=== PATIENT | male | born 2000 | race Caucasian/White ===

== ENCOUNTER 2019-01-13 23:51 | Emergency (ER) | payer OTHER ==
--- NOTE | 2019-01-14 00:21 | ED ---
Psychiatric Complaint - HPI Summary HPI Summary: Patient is a 18 y/o M presenting to ED via EMS under 941 status for MHE. It is reported that the patient is a [employer] student and was at a formal tonight. Per triage, "Pts friends report pt. stated he was having thoughts of wander off and harming himself." In the room, the patient denies making any statements of intention of self-harm and denies SI/HI. He states that he had 4-5 drinks tonight, with the last being around 75 minutes ago. Patient states that he started to think about his grandfather who had a few years ago, "shed a few tears" upon thinking about him, and decided that he wanted to go into the [employer] to "communicate with the trees" as part of his "orthodoxy practice". He claims that a friend misinterpreted his statements and decided to call the police. Per triage, "Reports having depression while in high school which he took lexapro for 4 months and was taken off the med. Pt. reports feeling well and free from depression". On triage, pain is denied. Nothing is noted to aggravate/alleviate Sx. Home medications and allergies are reviewed. - History Of Current Complaint Time Seen by Provider: 01/13/19 23:58 Hx Obtained From: Patient Onset/Duration: Resolved - patient denies any SI/HI or thoughts of self-harm Severity Currently: None - pain denied Aggravating Factor(s): Nothing Alleviating Factor(s): Nothing Associated Signs And Symptoms: Positive: Negative Has Suicidal: Denies: Thoughts Has Homicidal: Denies: Thoughts - Allergies/Home Medications Allergies/Adverse Reactions: Allergies Allergy/AdvReac Type Severity Reaction Status Date / Time No Known Allergies Allergy Verified 11/05/17 12:39 Home Medications: Home Medications Latuda 01/14/19 [History] PMH/Surg Hx/FS Hx/Imm Hx Endocrine/Hematology History: Denies: Hx Diabetes Cardiovascular History: Denies: Hx Hypertension, Hx Pacemaker/ICD History: Denies: Hx Renal Disease Sensory History: Denies: Hx Hearing Aid Neurological History: Reports: Other Neuro Impairments/Disorders - SCHIZOPHRENIA Psychiatric History: Reports: Hx Schizophrenia Denies: Hx Panic Disorder Infectious Disease History: No Infectious Disease History: Denies: Traveled Outside the [place] in Last 30 Days - Family History Known Family History: Positive: Other - FMHx of anxiety disorder - Social History Occupation: Student Lives: Dormitory/Roommates Alcohol Use: Daily Review of Systems Negative: Fever - on vitals, temp is 98.1 F Psychological: Other - NEGATIVE - SI/HI, NO THOUGHTS OF SELF-HARM All Other Systems Reviewed And Are Negative: Yes Physical Exam - Summary Physical Exam Summary: VITAL SIGNS: Reviewed. GENERAL: Patient is a well-developed and nourished male who is lying comfortable in the stretcher. Patient is not in any acute respiratory distress. HEAD AND FACE: No signs of trauma. No ecchymosis, hematomas or skull depressions. No sinus tenderness. EYES: PERRLA, EOMI x 2, No injected conjunctiva, no nystagmus. EARS: Hearing grossly intact. Ear canals and tympanic membranes are within normal limits. MOUTH: Oropharynx within normal limits. NECK: Supple, trachea is midline, no adenopathy, no JVD, no carotid bruit, no c- spine tenderness, neck with full ROM CHEST: Symmetric, no tenderness at palpation LUNGS: Clear to auscultation bilaterally. No wheezing or crackles. CVS: Regular rate and rhythm, S1 and S2 present, no murmurs or gallops appreciated. ABDOMEN: Soft, non-tender. No signs of distention. No rebound no guarding, and no masses palpated. Bowel sounds are normal. EXTREMITIES: FROM in all major joints, no edema, no cyanosis or clubbing. NEURO: Alert and oriented x 3. No acute neurological deficits. Speech is normal and follows commands. SKIN: Dry and warm Triage Information Reviewed: Yes Vital Signs On Initial Exam: Initial Vitals Temp Pulse Resp BP Pulse Ox 98.1 F 91 18 126/90 98 01/13/19 23:53 01/13/19 23:53 01/13/19 23:53 01/13/19 23:53 01/13/19 23:53 Vital Signs Reviewed: Yes Diagnostics - Vital Signs Vital Signs Temp Pulse Resp BP Pulse Ox 01/13/19 23:53 98.1 F 91 18 126/90 98 - Laboratory Result Diagrams: 01/14/19 02:20 01/14/19 02:20 Lab Statement: Any lab studies that have been ordered have been reviewed, and results considered in the medical decision making process. Re-Evaluation - Re-Evaluation First Eval Re-Evaluation Time: 00:21 Comment: Patient is medically cleared for MHE. Second Eval Re-Evaluation Time: 00:24 Comment: Nurse Lani conveys that the patient has PMHx of schizophrenia and that the patient's friends reported that the patient does not take any medications for this condition. She also reports that the patient's friends claimed that the patient drinks +12 alcoholic beverages daily. Course/Dx - Course Course Of Treatment: Patient is a 18 y/o M presenting to ED via EMS under 941 status for MHE. 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 Per triage, "Pts friends report pt. stated he was having thoughts of wander off and harming himself." In the room, the patient denies making any statements of intention of self-harm and denies SI/HI. He states that he had 4-5 drinks tonight, with the last being around 75 minutes ago. Patient states that he started to think about his grandfather who had a few years ago, "shed a few tears" upon thinking about him, and decided that he wanted to go into the [employer] to "communicate with the trees" as part of his "orthodoxy practice". He claims that a friend misinterpreted his statements and decided to call the police. Physical exam is unremarkable, patient is medically cleared. Nurse Lani conveys that the patient has PMHx of schizophrenia and that the patient's friends reported that the patient does not take any medications for this condition. She also reports that the patient's friends claimed that the patient drinks +12 alcoholic beverages daily. After review of patient's case by Dr. Handy, patient will be a MH hold until psychiatrist can come in the morning to evaluate the patient. Patient will be signed out to Dr. Mccurdy at 0700 01/14/19 shift change pending evaluation by psychiatrist. - Differential Dx/Clinical Impression Provider Diagnosis: Depression - Physician Notifications Discussed Care Of Patient With: Wil Handy Time Discussed With Above Provider: 01:54 Instructed by Provider To: Other - After review of patient's case by Dr. Handy, patient will be a MH hold until psychiatrist can come in the morning to evaluate the patient. Discharge - Sign-Out/Discharge Documenting (check all that apply): Sign-Out Patient Signing out patient TO: Marcello Mccurdy - Discharge Plan Referrals: [facility] - [employer] [facility] [[employer], APPLICATION, OTHER] - - Attestation Statements Document Initiated by Scribe: Yes Documenting Scribe: MIKE MITCHELL Provider For Whom Scribe is Documenting (Include Credential): CALLY MARIE MD Scribe Attestation: I, MIKE MITCHELL, scribed for CALLY MARIE MD on 01/14/19 at 0628. Status of Scribe Document: Ready
[2019-01-14 02:31] LABS: Urine Appearance Clear; Urine Bilirubin Negative (Negative); Urine Blood Negative (Negative); Urine Color Colorless; Urine Glucose Negative (Negative); Urine Ketones Negative (Negative); Urine Nitrite Negative (Negative); Urine Protein Negative (Negative); Urine Specific Gravity 1.002 (1.010-1.030); Urine Urobilinogen Negative (Negative)
[2019-01-14 02:33] LABS: ABS Basophils 0.1 10^3/ul (0-0.2); ABS Eosinophils 0.3 10^3/ul (0-0.6); ABS Lymphocytes 2.8 10^3/ul (1.0-4.8); ABS Monocytes 0.5 10^3/ul (0-0.8); ABS Neutrophils 5.1 10^3/ul (1.5-7.7); Eosinophil % 2.9 %; Hematocrit 47 % (42-52); Hemoglobin 16.5 g/dL (14.0-18.0); Mean Corpuscular HGB Conc 35 g/dL (31-36); Mean Corpuscular Hemoglobin 32 pg (27-31); Mean Corpuscular Volume 92 fL (80-94); Mean Platelet Volume 8.9 fL (7.4-10.4); Nucleated Red Blood Cells % 0.1; Platelet Count 247 10^3/uL (150-450); Red Blood Count 5.11 10^6 /uL (4.18-5.48); Red Cell Distribution Width 13 % (10.5-15); White Blood Count 8.6 10^3/uL (3.5-10.8)
[2019-01-14 02:41] LABS: Urine Benzodiazepine Screen None Detected (None Detect); Urine Opiates Screen None Detected (None Detect)
[2019-01-14 02:45] LABS: ALT 12 U/L (7-52); AST 14 U/L (13-39); Acetaminophen < 15 mcg/mL; Albumin 4.7 g/dL (3.2-5.2); Albumin/Globulin Ratio 1.6 (1-3); Alcohol 136 mg/dL (<10); Alkaline Phosphatase 84 U/L (34-104); Anion Gap 12 mmol/L (2-11); BUN/Creatinine Ratio 15.1 (8-20); Blood Urea Nitrogen 13 mg/dL (6-24); CO2 Carbon Dioxide 24 mmol/L (22-32); Calcium 9.4 mg/dL (8.6-10.3); Chloride 104 mmol/L (101-111); EGFR African American 137.2 (>60); EGFR Non-African American 113.4 (>60); Globulin 2.9 g/dL (2-4); Glucose 88 mg/dL (70-100); Potassium 3.8 mmol/L (3.5-5.0); Salicylate < 2.50 mg/dL (<30); Sodium 140 mmol/L (135-145); Total Protein 7.6 g/dL (6.4-8.9)
[2019-01-14 03:00] LABS: TSH (Thyroid Stimulating Horm) 4.04 mcIU/mL (0.34-5.60)
--- NOTE | 2019-01-14 07:21 | PN ---
ED Flex Patient Progress Note Date of Service: 01/13/19 Subjective: This is a 18 year-old M who is pending admission to [facility] / transfer to another psychiatric facility / discharge to home / or being observed secondary to depression. Pt. examined in room 21 at 0720. He is sitting on side of bed drinking water in NAD. Offers to complaints. Objective: Vitals: Most recent vital signs documented below. General NAD, Alert and oriented x3. Laboratory: Current laboratory results documented below. Assessment: depression. Plan: Pending re-evaluation. Latuda listed in meds but pt. not currently taking. Vital Signs Temp Pulse Resp BP Pulse Ox 97.7 F 89 16 116/65 100 01/14/19 01:25 01/14/19 01:25 01/14/19 01:25 01/14/19 01:25 01/14/19 01:25 Lab Results - Entire Visit 01/14/19 01/14/19 01/14/19 02:20 02:20 00:17 WBC 8.6 RBC 5.11 Hgb 16.5 Hct 47 MCV 92 MCH 32 H MCHC 35 RDW 13 Plt Count 247 MPV 8.9 Neut % (Auto) 58.8 Lymph % (Auto) 32.0 Archuleta % (Auto) 5.6 Eos % (Auto) 2.9 Baso % (Auto) 0.7 Absolute Neuts (auto) 5.1 Absolute Lymphs (auto) 2.8 Absolute Monos (auto) 0.5 Absolute Eos (auto) 0.3 Absolute Basos (auto) 0.1 Absolute Nucleated RBC 0.0 Nucleated RBC % 0.1 Sodium 140 Potassium 3.8 Chloride 104 Carbon Dioxide 24 Anion Gap 12 H BUN 13 Creatinine 0.86 Est GFR ( Amer) 137.2 Est GFR (Non-Af Amer) 113.4 BUN/Creatinine Ratio 15.1 Glucose 88 Calcium 9.4 Total Bilirubin 0.50 AST 14 ALT 12 Alkaline Phosphatase 84 Total Protein 7.6 Albumin 4.7 Globulin 2.9 Albumin/Globulin Ratio 1.6 TSH 4.04 Urine Color Urine Appearance Urine pH Ur Specific Earl[place] Urine Protein Urine Ketones Urine Blood Urine Nitrate Urine Bilirubin Urine Urobilinogen Ur Leukocyte Esterase Urine Glucose Salicylates < 2.50 Urine Opiates Screen None detected Acetaminophen < 15 Ur Barbiturates Screen None detected Ur Phencyclidine Scrn None detected Ur Amphetamines Screen None detected U Benzodiazepines Scrn None detected Urine Cocaine Screen None detected U Cannabinoids Screen None detected Serum Alcohol 136 H 01/14/19 00:17 WBC RBC Hgb Hct MCV MCH MCHC RDW Plt Count MPV Neut % (Auto) Lymph % (Auto) Archuleta % (Auto) Eos % (Auto) Baso % (Auto) Absolute Neuts (auto) Absolute Lymphs (auto) Absolute Monos (auto) Absolute Eos (auto) Absolute Basos (auto) Absolute Nucleated RBC Nucleated RBC % Sodium Potassium Chloride Carbon Dioxide Anion Gap BUN Creatinine Est GFR ( Amer) Est GFR (Non-Af Amer) BUN/Creatinine Ratio Glucose Calcium Total Bilirubin AST ALT Alkaline Phosphatase Total Protein Albumin Globulin Albumin/Globulin Ratio TSH Urine Color Colorless Urine Appearance Clear Urine pH 6.0 Ur Specific [place] 1.002 L Urine Protein Negative Urine Ketones Negative Urine Blood Negative Urine Nitrate Negative Urine Bilirubin Negative Urine Urobilinogen Negative Ur Leukocyte Esterase Negative Urine Glucose Negative Salicylates Urine Opiates Screen Acetaminophen Ur Barbiturates Screen Ur Phencyclidine Scrn Ur Amphetamines Screen U Benzodiazepines Scrn Urine Cocaine Screen U Cannabinoids Screen Serum Alcohol
--- NOTE | 2019-01-14 10:54 | ED ---
Progress - Progress Note Progress Note: Pt signed out from Dr. Choi pending evaluation from psychiatrist. Per Joseph, mental health accounting systems analyst, pt will be discharged after evaluation by Dr. Handy, psychiatrist. - Consult/PCP Time Called: 00:20 Re-Evaluation - Re-Evaluation First Eval Re-Evaluation Time: 00:21 Comment: Patient is medically cleared for MHE. Second Eval Re-Evaluation Time: 00:24 Comment: Nurse Lani conveys that the patient has PMHx of schizophrenia and that the patient's friends reported that the patient does not take any medications for this condition. She also reports that the patient's friends claimed that the patient drinks +12 alcoholic beverages daily. Course/Dx - Diagnoses Provider Diagnoses: Substance induced mood disorder Discharge - Sign-Out/Discharge Documenting (check all that apply): Patient Departure - Discharge Patient Received Moderate/Deep Sedation with Procedure: No - Discharge Plan Condition: Stable Disposition: HOME Patient Education Materials: Mood Disorders (ED) Referrals: [facility] - [employer] [facility] [[employer], APPLICATION, OTHER] - - Billing Disposition and Condition Condition: STABLE Disposition: Home - Attestation Statements Document Initiated by Scribe: Yes Documenting Scribe: Maribel Tesfaye Provider For Whom Scribe is Documenting (Include Credential): Marcello Mccurdy MD Scribe Attestation: IMaribel, scribed for Marcello Mccurdy MD on 01/14/19 at 1505. Scribe Documentation Reviewed: Yes Provider Attestation: The documentation as recorded by the scribeMaribel accurately reflects the service I personally performed and the decisions made by me, Marcello Mccurdy MD Status of Scribe Document: Viewed
[2019-01-14 10:56] VITALS: BP 129/96
== END 2019-01-14 11:30 | disposition home or self-care (01) ==
LOC: ED 23:51
DX: F19.94 Other psychoactive substance use, unspecified with psychoactive substance-induced mood disorder (principal); F32.9 Major depressive disorder, single episode, unspecified; F20.9 Schizophrenia, unspecified
CPT/HCPCS: 36415; 80053; 80307; 80320; 80329; 81003; 84443; 85025; 99283; G0480

== ENCOUNTER 2019-02-08 00:31 | Emergency (ER) | payer OTHER ==
--- NOTE | 2019-02-08 01:05 | ED ---
Substance Abuse/Use - HPI Summary HPI Summary: This pt is a 18 y/o M brought in by EMS and the police after being found passed out in [facility]. Pt was unconscious when found by a passerby. The pt became agitated when he was loaded on a stretcher and attempted to bite one of the police officers before being placed in handcuffs en route to the ED. He denies any other substance abuse and pain. The pt is a level 5 caveat due to intoxication. - History Of Current Complaint Chief Complaint: EDSubstanceAbuse Stated Complaint: ETOH PER EMS Time Seen by Provider: 02/08/19 00:41 Hx Obtained From: EMS, Other: - Police Hx From Patient Unobtainable Due To: Other - Alcohol Intoxication Ingestion History: Type/Name Of Drug - Alcohol Severity Initially: Severe Severity Currently: Severe Character: Lethargic, Other - Aggressive when loaded on the stretcher by EMS Aggravating Factor(s): Nothing Alleviating Factor(s): Nothing Associated Signs And Symptoms: Hostile - Bite a information officer, Agitated - Bite a information officer - Allergies/Home Medications Allergies/Adverse Reactions: Allergies Allergy/AdvReac Type Severity Reaction Status Date / Time No Known Allergies Allergy Verified 11/05/17 12:39 PMH/Surg Hx/FS Hx/Imm Hx Previously Healthy: No Endocrine/Hematology History: Denies: Hx Diabetes Cardiovascular History: Denies: Hx Hypertension, Hx Pacemaker/ICD History: Denies: Hx Renal Disease Sensory History: Denies: Hx Hearing Aid Neurological History: Reports: Other Neuro Impairments/Disorders - SCHIZOPHRENIA Psychiatric History: Reports: Hx Schizophrenia Denies: Hx Eating Disorder, Hx Panic Disorder, Hx of Violent Episodes Against Others Infectious Disease History: No Infectious Disease History: Denies: Traveled Outside the [place] in Last 30 Days - Family History Known Family History: Positive: Other - FMHx of anxiety disorder - Social History Alcohol Use: Daily Hx Substance Use: No Substance Use Type: Reports: None Hx Tobacco Use: No Smoking Status (MU): Never Smoked Tobacco Review of Systems - ROS Summary Review of Systems Summary: Pt is a level 5 caveat due to alcohol intoxication. ROS unobtainable. All Other Systems Reviewed And Are Negative: No Physical Exam - Summary Physical Exam Summary: Pt is a level 5 caveat due to alcohol intoxication Appearance: Well-appearing, Well-nourished, lying in bed comfortably Skin: Warm, dry, no obvious rash Eyes: sclera anicteric, no conjunctival pallor ENT: mucous membranes moist, pharynx appears normal Neck: Supple, nontender Respiratory: Clear to auscultation, no signs of respiratory distress Cardiovascular: Normal S1, S2. No murmurs. Normal distal pulses in tibial and radial bilaterally. Abdomen: Soft, nontender, normal active bowel sounds present Musculoskeletal: Normal, Strength/ROM Intact Neurological: A&Ox3, awake and alert, mentation is normal, pt was easily aroused and was able to answer most questions. Psychiatric: affect is normal, does not appear anxious or depressed Triage Information Reviewed: Yes Vital Signs On Initial Exam: Initial Vitals Temp Pulse Resp BP Pulse Ox 97.7 F 82 18 114/77 97 02/08/19 00:35 02/08/19 00:35 02/08/19 00:35 02/08/19 00:35 02/08/19 00:35 Vital Signs Reviewed: Yes Diagnostics - Vital Signs Vital Signs Temp Pulse Resp BP Pulse Ox 02/08/19 00:35 97.7 F 82 18 114/77 97 - Laboratory Lab Statement: Any lab studies that have been ordered have been reviewed, and results considered in the medical decision making process. Course/Dx - Course Course Of Treatment: This pt is a 18 y/o M brought in by EMS and the police after being found passed out in [facility]. Pt was unconscious when found by a passerby. The pt became agitated when he was loaded on a stretcher and attempted to bite one of the police officers before being placed in handcuffs en route to the ED. The pt received a serum alcohol test which showed a value of 352. The pt will be discharged home with a dx of alcohol intoxication the morning of 02/08/19 when he is sober. - Diagnoses Provider Diagnoses: Alcohol intoxication Discharge - Sign-Out/Discharge Documenting (check all that apply): Patient Departure Patient Received Moderate/Deep Sedation with Procedure: No - Discharge Plan Condition: Stable Disposition: HOME Patient Education Materials: Alcohol Intoxication (ED) Referrals: [facility] [Outside] [facility] [Outside] - If Needed - Billing Disposition and Condition Condition: STABLE Disposition: Home - Attestation Statements Document Initiated by Scribe: Yes Documenting Scribe: Johny Garcia Provider For Whom Scribe is Documenting (Include Credential): Marcello Gomez MD Scribe Attestation: IJohny, scribed for Marcello Gomez MD on 02/08/19 at 0520. Scribe Documentation Reviewed: Yes Provider Attestation: The documentation as recorded by the scribeJohny accurately reflects the service I personally performed and the decisions made by me, Marcello Gomez MD Status of Scribe Document: Viewed
[2019-02-08 06:24] VITALS: BP 97/79
== END 2019-02-08 06:52 | disposition home or self-care (01) ==
LOC: ED 00:31
DX: F10.129 Alcohol abuse with intoxication, unspecified (principal); Y90.8 Blood alcohol level of 240 mg/100 ml or more
CPT/HCPCS: 36415; 80320; 99281; G0480